=== PATIENT | female | born 1940 | race Caucasian/White ===

== ENCOUNTER → 2017-01-12 | Outpatient (CLI) | payer OTHER ==
[~2017-01-12] VITALS: Ht 167.6 cm; Wt 88.7 kg
[~2017-01-12] MED LIST: GLUCOPHAGE XR500 MG PO; HYDROCODONE-AP1 EAC6 PO; IRON325 PO; LISINOPRIL5 MG PO; PRILOSEC OTC20 MG PO; PROSCAR 5MG TABL5 MG PO; VITAMIN D35000 UNIT PO; ZOCOR20 MG PO
--- NOTE | ~2017-01-12 | HPC ---
[facility] [address] [place] [address] PAIN MANAGEMENT CONSULTATION Name: JARON PARK [id number] Admission: 01/12/17 Attend Phys: Jamal Cee DO Discharge: Date of : 41 Report #: [id number] THIS REPORT FOR: //name// CC: Jamal Lobo DATE OF SERVICE: 01/12/2017 DATE OF SERVICE: 01/12/2017 CHIEF COMPLAINT: Left neck pain, left upper extremity pain and paresthesias. HISTORY OF PRESENT ILLNESS: As you know, patient is a very pleasant 76-year-old female, who has been experiencing neck pain, left upper extremity pain that began 12/17/2016. The patient denies injury or trauma that may have led to symptoms. She discussed her care with Dr. Robbin Lobo, who was evaluating whether or not this was a neck issue or whether this was an issue of left shoulder symptomology. The patient ultimately was determined that may be experiencing cervical radiculopathy, given the findings of physical exam and the history she provided. She was subsequently referred to our clinic to discuss options for treatment for cervical radicular symptoms. She indicates pain today is constant, describes the pain as burning, shooting, sharp and stabbing, places current pain score 9/10, daily average at 7-9/10, worst the pain has been is 9/10. She states pain is exacerbated with lying down, improves with medications. She has been referred to our service for possible cervical radiculopathy. PAST MEDICAL HISTORY: 1. Hiatal hernia. 2. Hypertension. 3. Hypercholesterolemia. 4. GERD. 5. History of duodenal ulcers. 6. Hemorrhoids. 7. Degenerative joint disease. PAST SURGICAL HISTORY: Cholecystectomy, right hammertoe surgery x 2, blepharoplasties, total abdominal hysterectomy, bilateral salpingo-oophorectomy, multiple colonoscopies, hemorrhoidectomies. SOCIAL HISTORY: The patient denies tobacco, alcohol, IV or illicit drug use. She is retired. She is accompanied by her , is present in room today. IMAGING: No imaging available. [facility] [address] [place] [address] PAIN MANAGEMENT CONSULTATION Name: JARON PARK Room #: REG [facility]#: [id number] Admission: 01/12/17 Attend Phys: Jamal Cee DO Discharge: Date of : 41 Report #: [id number] REVIEW OF SYSTEMS: Positive for fatigue and weakness, wearing corrective eyewear, hearing loss with tinnitus, shortness of breath while lying flat, frequent urination, nocturia, incontinence and dribbling to urine, varicose veins, numbness and tingling sensations, neck pain, left shoulder pain, insomnia. All other review of systems negative per 12-point review of systems other than those listed in history of present illness. Pain impact score 44/70 indicating moderate to severe interference of daily activities secondary to pain. ALLERGIES: No known drug allergies. CURRENT MEDICATIONS: Lisinopril 5 mg once a day, simvastatin 10 mg once per day, metformin 500 mg twice a day, finasteride 5 mg 3 times a week, Prilosec 20 mg per day, vitamin D3 5000 units per day, iron supplementation 65 mg once a day. PHYSICAL EXAMINATION: VITAL SIGNS: Blood pressure 112/65, pulse 63, respiratory rate 20, unlabored. The patient is 100% on room air, height 5 feet 6 inches tall, weight 195.6 pounds, BMI calculated 31.6. GENERAL: Well developed, well nourished, well hydrated 76-year-old female appearing her stated age. She is placing current pain score at 9/10. HEENT: Normocephalic, atraumatic. Pupils equal, round, reactive to light. Extraocular muscles are intact. Sclerae nonicteric without injection. NEUROLOGIC: Cranial nerves 2-12 grossly intact. Speech is fluent. The patient deemed an excellent historian. LUNGS: Clear, no wheeze, rhonchi or rales. CARDIOVASCULAR: Regular. No appreciable gallop or rub. ABDOMEN: Soft, mildly obese, normoactive bowel sounds. EXTREMITIES: Show no clubbing, no cyanosis, no edema. MUSCULOSKELETAL: The patient does have palpatory tenderness over the paraspinal musculature cervical spine, no spinous process tenderness. Active and passive range of motion of left shoulder causes intensification of pain. There is noted positive Spurling's test left, negative right. Cervical provocation testing including extension, rotation, and lateral flexion to the left causes intensification of pain with radiation to the proximal humerus. Muscle bulk and tone equal and symmetrical in upper extremities. Intact to light touch from C5 through T1 dermatomes. ASSESSMENT: 1. Cervical radiculopathy. 2. Cervical spondylosis with radicular symptoms. 3. Left shoulder pain. PLAN: [facility] [address] [place] [address] PAIN MANAGEMENT CONSULTATION Name: JARON PARK Room #: REG [facility] Pam#: [id number] Admission: 01/12/17 Attend Phys: Jamal Cee DO Discharge: Date of : 41 Report #: [id number] 1. Based on today's physical exam, history the patient has provided, the description the patient uses in regards to pain as well as the exacerbating factors and alleviating factors, likely source of patient's pain is a cervical radiculopathy. She does have fairly significant shoulder pain, but it does not appear to be generated directly from the shoulder joint itself, though this is a strong possibility in a 76-year-old female that there is intrinsic shoulder pathology including osteoarthritic changes that may be contributing but the symptoms she is experiencing today appear to be related more to cervical radiculopathy given the positive Spurling's test. I believe cervical radicular symptoms are the major source of her symptoms. We discussed with the patient treatment options for cervical radicular symptoms today. These would include physical therapy, stretching exercises, core strengthening and traction techniques. We discussed medication management with addition of a neuropathic pain medication, low dose opioid for pain control and consistent nonsteroidal anti-inflammatory. We discussed cervical epidural injections under fluoroscopic guidance, spinal cord stimulator therapies and surgical options. After reviewing risks and benefits of all proposed treatment options, the patient chose cervical epidural injection under fluoroscopic guidance. The patient was advised risks and benefits of a cervical epidural injection. These risks include but are not necessarily limited to bleeding, bruising, infection, worsening pain, no relief of pain, also risk of temporary or permanent muscle weakness, temporary or permanent paralysis and . The patient states understood and wished to proceed. 2. The patient will be started on hydrocodone 5/325 one tab p.o. q. 6 hours p.r.n. for pain. I have given the patient #60, advised the patient to take the pain medication only when pain is intolerable, not to rely on the medication prophylactically. She is to watch for side effects such as somnolence, decrease in mental acuity, disorientation, confusion and constipation with the use of this therapy. If she has any side effects, discontinue immediately, call for further instructions. 3. There is a strong possibility the patient does have some arthritic changes in the left shoulder. We will further evaluate this if cervical treatments are not resolving the majority of her symptoms. I do feel that there are some arthritic changes in the shoulder, though she has no specific injury that would have led to acute onset of pain. This may be contributing to her symptoms. We will continue workup of the left shoulder if necessary depending on the efficacy of the injection for the cervical region. 4. We wish to thank Dr. Lobo for the referral of this patient to our clinic. We will keep you apprised of her response to treatment, as we address what appears to be cervical radicular symptoms. Again, we wish to thank you for the opportunity to participate in her care. PROCEDURE NOTE DESCRIPTION OF PROCEDURE: C7-T1 [place] [address] PAIN MANAGEMENT CONSULTATION Name: JARON PARK Room #: REG [facility]#: [id number] Admission: 01/12/17 Attend Phys: Jamal Cee DO Discharge: Date of : 41 Report #: [id number] fluoroscopic guidance. This is the first procedure of the first series that the patient is undergoing. After obtaining written consent, the patient was taken back to the fluoroscopy suite and placed in a prone position with separate pillows under chest and forehead to decrease cervical lordosis. The skin overlying the cervical area was prepped and draped in an aseptic fashion. The C7-T1 vertebral interspace was identified by AP fluoroscopy. The skin and subcutaneous tissue overlying the target site of injection was anesthetized using 3 mL of 1% lidocaine. A 20-gauge 3-1/2 inches Tuohy needle was advanced under fluoroscopic guidance toward the epidural space using a midline approach. The epidural space was identified using a loss of resistance to air technique. After negative aspiration for heme or cerebrospinal fluid, a total of 1 mL of Omnipaque was injected. A cervical epidurogram was confirmed using AP and oblique fluoroscopy. After negative aspiration for heme or cerebrospinal fluid, 5 mL of solution containing 2 mL 40 mg per mL, 80 mg total triamcinolone, 3 mL of lidocaine 1% was injected in increments. Contrast spread was noted from posterior epidural space. The needle was then retracted approximately half-way and the needle track was flushed with 1 mL of 1% lidocaine. There were no apparent new sensory deficits in the upper extremities present following the procedure. A sterile bandage was placed over the injection site. The heart rate, pulse oximetry and blood pressure were continuously monitored after the procedure. There were no apparent complications. The patient tolerated the procedure well and was carefully escorted in the recovery room in stable condition. After meeting discharge criteria, the patient was discharged home. By: [id number] Jamal Cee DO /nt
[2017-01-12 10:04] VITALS: BP 112/65
== END | disposition home or self-care (01) ==
LOC: PAIN 06:55
DX: M54.12 Radiculopathy, cervical region (principal); M47.812 Spondylosis without myelopathy or radiculopathy, cervical region; M25.512 Pain in left shoulder; M54.2 Cervicalgia; I10 Essential (primary) hypertension; E78.00 Pure hypercholesterolemia, unspecified; K21.9 Gastro-esophageal reflux disease without esophagitis; M19.90 Unspecified osteoarthritis, unspecified site; Z90.49 Acquired absence of other specified parts of digestive tract; Z90.710 Acquired absence of both cervix and uterus

== ENCOUNTER → 2017-01-26 | Outpatient (CLI) | payer OTHER ==
[~2017-01-26] VITALS: Ht 167.6 cm; Wt 89.7 kg
[~2017-01-26] MED LIST changes: +IBUPROFEN 200200 M1 PO
--- NOTE | ~2017-01-26 | HPC ---
[facility] [address] [place] [address] PAIN MANAGEMENT CONSULTATION Name: JARON PARK Room #: REG [facility].#: [id number] Admission: 01/26/17 Attend Phys: Jamal Cee DO Discharge: Date of : 41 Report #: [id number] THIS REPORT FOR: //name// CC: Jamal Lobo MD DATE OF SERVICE: 01/26/2017 REFERRING PHYSICIAN: Robbin Lobo MD CHIEF COMPLAINT: Neck pain, left upper extremity pain and paresthesias. HISTORY OF PRESENT ILLNESS: As you know, the patient is a very pleasant 76-year-old female who was referred to our clinic by her primary care physician, Dr. Robbin Lobo for evaluation of neck and left upper extremity pain. She was given the presumptive diagnosis of cervical radiculopathy along with left shoulder pain and underwent an epidural injection under fluoroscopic guidance to address cervical radicular symptoms. The patient came to us with no imaging studies, no x-rays, and no MRIs. She did undergo the procedure without complication and unfortunately, she only received transient improvement in symptoms. She returns today in followup visit to discuss further workup of her neck and left upper extremity symptoms. She places pain score today 8/10, states her pain is constant, burning, and shooting, exacerbated with lying down, improves with medications. She is accompanied by her today. She denies new injury, new trauma or any changes in medical history since our last visit. ALLERGIES: No known drug allergies. CURRENT MEDICATIONS: Ibuprofen, ferrous sulfate, omeprazole, finasteride, metformin, simvastatin, and lisinopril. SOCIAL HISTORY: The patient denies tobacco, alcohol, IV or illicit drug use. She is retired. She is accompanied by her . IMAGING: No new imaging available. PHYSICAL EXAMINATION: VITAL SIGNS: Blood pressure 118/52, pulse 50, respiratory rate 20 and unlabored, the patient is 100% on room air, height 5 feet 6 inches tall, weight 197.8 pounds, and BMI calculated 31.9. GENERAL: Well-developed, well-nourished, well-hydrated 76-year-old female, she appears her stated age, pain is rated around 8/10. HEENT: Normocephalic, atraumatic. Pupils are equal, round, and reactive to light. Extraocular muscles are intact. EXTREMITIES: Show no clubbing, no cyanosis, and no edema. [facility] [address] [place] [address] PAIN MANAGEMENT CONSULTATION Name: JARON PARK Room #: REG [facility]#: [id number] Admission: 01/26/17 Attend Phys: Jamal Cee DO Discharge: Date of : 41 Report #: [id number] MUSCULOSKELETAL: There is palpatory tenderness again noted over the paraspinal musculature of the cervical spine. Upper extremity strength appears equal and symmetrical. Active and passive range of motion of the left shoulder does intensify pain, though the pain does not appear to be related to just the shoulder itself. Spurling's test is positive left, negative right. Cervical provocation testing does cause increased pain with lateral flexion to the left and rotation to the left. ASSESSMENT: 1. Cervical radiculopathy. 2. Cervical spondylosis with radicular symptoms. 3. Left shoulder pain. 4. Chronic intractable pain. PLAN: 1. The patient returns today in followup visit having undergone the first in the series of cervical epidural injections, this did provide some analgesic benefit, but unfortunately was only short lived. She returns today in followup visit to discuss further evaluation. I agree with the patient at this time further imaging should be obtained before we move forward with any other treatment option. There is concern that the injection itself did not provide improvement and this may be due to more of a mechanical component to the patient's symptoms than inflammatory, as you are aware epidural injections are very effective at alleviating inflammatory processes, but provide little or no benefit from a mechanical standpoint. We will further evaluate the patient with MRI of cervical spine, we will set the patient up for this imaging study and have her return once we have completed this imaging to discuss the findings and the potential treatment options. The patient will undergo this MRI as quickly as possible. She was advised that authorization may be necessary before she could undergo this procedure. We will begin the authorization process immediately. 2. We have made no changes in the patient's medications at this time, she is to continue current medical therapy as previously prescribed. I did provide the patient with hydrocodone at last visit, she can continue this medication for pain control, she is receiving analgesic benefit with its use. 3. We will see the patient back in followup visit once she has completed her MRI, we will review the findings and discuss the options of treatment. By: [id number] Jamal Cee DO /nt
[2017-01-26 10:20] VITALS: BP 118/52
== END | disposition home or self-care (01) ==
LOC: PAIN 07:41
DX: M54.12 Radiculopathy, cervical region (principal); M47.22 Other spondylosis with radiculopathy, cervical region; M25.512 Pain in left shoulder

== ENCOUNTER → 2017-03-10 | Outpatient (CLI) | payer OTHER | LOC: MRI 07:20 | DX: M47.892 Other spondylosis, cervical region (principal); M54.12 Radiculopathy, cervical region; M25.512 Pain in left shoulder ==

== ENCOUNTER → 2017-03-16 | Outpatient (CLI) | payer OTHER ==
[~2017-03-16] VITALS: Ht 167.6 cm; Wt 134.3 kg
[~2017-03-16] MED LIST changes: +NORCO 5-325 TA1 EACH PO
--- NOTE | ~2017-03-16 | HPC ---
[facility] [address] [address] PAIN MANAGEMENT CONSULTATION Name: JARON PARK Room #: REG [facility]#: [id number] Admission: 03/16/17 Attend Phys: Jamal Cee DO Discharge: Date of : 41 Report #: [id number] THIS REPORT FOR: //name// CC: Jamal Lobo MD DATE OF SERVICE: 03/16/2017 REFERRING PHYSICIAN: Robbin Lobo MD CHIEF COMPLAINT: Neck pain, left upper extremity pain and paresthesias. HISTORY OF PRESENT ILLNESS: As you know, the patient is a very pleasant 76-year-old female who returns today in followup visit with ongoing neck pain, left upper extremity pain with paresthesias. The patient is placing pain score around 8/10, states pain is burning, , stabbing, tingling, numbness, spasming, improvement in symptoms with medications, heat and cold compresses, lying down and any activity with the left upper extremity exacerbate symptoms. She has returned today in followup visit to review the recent MRI that was obtained on 03/10/2017 and discuss options for treatment. She denies new injury new trauma that may have led to continuation of symptoms. ALLERGIES: No known drug allergies. CURRENT MEDICATIONS: Ibuprofen, ferrous sulfate, omeprazole, finasteride, metformin, simvastatin, and lisinopril. SOCIAL HISTORY: The patient denies tobacco, alcohol, IV or illicit drug use. She is retired. She is accompanied by her who is also retired. IMAGING: MRI of cervical spine obtained on 03/10/2017 shows moderate cervical spondylosis, posterior ridging and spurring most severe at the C4-C5 level and C6-C7 level, mild central canal stenosis, C4-C5, C5-C6, C6-C7 with small right paramedian disk osteophyte complex seen at C6-C7 with mild cord contact. PHYSICAL EXAMINATION: VITAL SIGNS: Blood pressure 136/91, pulse 65, respiratory rate 20, unlabored. The patient is 97% on room air, height 5 feet 6 inches tall, weight 197 pounds, BMI calculated at 31.9. GENERAL: Well-developed, well-nourished, well-hydrated 76-year-old female appearing stated age, placing current pain score at 8/10. HEENT: Normocephalic, atraumatic. Pupils equal, round, reactive to light. Extraocular muscles are intact. Sclerae nonicteric without injection. NEUROLOGIC: Cranial nerves 2-12 grossly intact. LUNGS: Clear. [address] [address] PAIN MANAGEMENT CONSULTATION Name: JARON PARK Room #: [facility]#: [id number] Admission: 03/16/17 Attend Phys: Jamal Cee DO Discharge: Date of : 41 Report #: [id number] EXTREMITIES: Show no clubbing, no cyanosis, no edema. MUSCULOSKELETAL: Upper extremity strength appears equal and symmetrical 5/5. Slight giveaway strength noted with biceps flexion on the left when compared to the right. Spurling's test positive left, negative right. Muscle bulk and tone equal and symmetrical in upper extremities. ASSESSMENT: 1. Cervical radiculopathy. 2. Cervical spinal stenosis. 3. Displacement of cervical intervertebral disk. 4. Cervical spondylosis with radiculopathy. 5. Chronic intractable pain. PLAN: 1. The patient returns today in followup visit where we aware have been reviewed in its entirety. The findings of the MRI obtained on 03/10/2017. I am pleased to indicate to the patient today that there are no major pathology that would require surgical options. The majority of the findings are age-related with facet arthropathy noted as the major changes noted within the cervical region. We discussed with the patient that options for treatment remain similar to her previous evaluation. The following was discussed. The patient and I discussed physical therapy, stretching exercises, core strengthening for which the patient is continuing to participate that would need to be some adjustments in their physical therapy to adjust for ongoing left upper extremity pain, but she could continue this process. We discussed medication management with neuropathic pain medication, low dose opioid for pain control. We discussed cervical epidural injections under fluoroscopic guidance, spinal cord stimulator therapy is an option and surgical options were discussed, but they are not necessary in this patient's case. After reviewing risks and benefits of all proposed treatment options, the patient requested to trial once again an epidural injection. 2. The patient was advised risks and benefits of a cervical epidural injection. These risks include but are not necessarily limited to bleeding, bruising, infection, worsening pain, no relief of pain, also risk of temporary or permanent muscle weakness, temporary or permanent nerve damage, possible paralysis and . The patient states understood and wished to proceed. 3. No medication changes were made at today's visit, the patient to continue current medical therapy as previously prescribed. 4. The patient to return to our clinic on an as needed basis for next in the series of epidural injections and discuss other treatment options. PROCEDURE NOTE DESCRIPTION OF PROCEDURE: C7-T1 cervical epidural steroid injection under fluoroscopic guidance. [address] [address] PAIN MANAGEMENT CONSULTATION Name: JARON PARK Room #: REG [facility]#: [id number] Admission: 03/16/17 Attend Phys: Jamal Cee DO Discharge: Date of : 41 Report #: [id number] This is the second procedure of the first series that the patient is undergoing. After obtaining written consent, the patient was taken back to the fluoroscopy suite and placed in a prone position with separate pillows under chest and forehead to decrease cervical lordosis. The skin overlying the cervical area was prepped and draped in an aseptic fashion. The C7-T1 vertebral interspace was identified by AP fluoroscopy. The skin and subcutaneous tissue overlying the target site of injection was anesthetized using 3 mL of 1% lidocaine. A 20-gauge 3-1/2 inch Tuohy needle was advanced under fluoroscopic guidance toward the epidural space using a midline approach. The epidural space was identified using a loss of resistance to air technique. After negative aspiration for heme or cerebrospinal fluid, a total of 1 mL of Omnipaque was injected. A cervical epidurogram was confirmed using AP and oblique fluoroscopy. After negative aspiration for heme or cerebrospinal fluid, 5 mL of solution containing 2 mL 40 mg per mL, 80 mg total triamcinolone, 3 mL of lidocaine 1% was injected in increments. Contrast spread was noted from posterior epidural space. The needle was then retracted approximately prison and the needle track was flushed with 1 mL of 1% lidocaine. There were no apparent new sensory deficits in the upper extremities present following the procedure. A sterile bandage was placed over the injection site. The heart rate, pulse oximetry and blood pressure were continuously monitored after the procedure. There were no apparent complications. The patient tolerated the procedure well and was carefully escorted in the recovery room in stable condition. After meeting discharge criteria, the patient was discharged home. By: [id number] Jamal Cee DO /nt
[2017-03-16 14:11] VITALS: BP 136/91
== END | disposition home or self-care (01) ==
LOC: PAIN 02-02 06:46
DX: M50.320 Other cervical disc degeneration, mid-cervical region, unspecified level (principal); M48.02 Spinal stenosis, cervical region; M47.22 Other spondylosis with radiculopathy, cervical region; G89.29 Other chronic pain; Z79.899 Other long term (current) drug therapy

== ENCOUNTER → 2017-04-06 | Outpatient (CLI) | payer OTHER ==
[~2017-04-06] VITALS: Ht 167.6 cm; Wt 88.0 kg
[~2017-04-06] MED LIST changes: +DICLOFENAC SOD50 M1 PO
[2017-04-06 11:01] VITALS: BP 126/77
== END | disposition home or self-care (01) ==
LOC: PAIN 07:19
DX: M48.02 Spinal stenosis, cervical region (principal); M50.30 Other cervical disc degeneration, unspecified cervical region; M47.27 Other spondylosis with radiculopathy, lumbosacral region; M25.512 Pain in left shoulder; G89.29 Other chronic pain; Z98.890 Other specified postprocedural states

== ENCOUNTER → 2017-06-08 | Outpatient (CLI) | payer OTHER ==
[~2017-06-08] VITALS: Ht 167.6 cm; Wt 87.5 kg
[~2017-06-08] MED LIST changes: +AMLODIPINE BESYL5 M1 PO; +LISINOPRIL20 MG PO; -LISINOPRIL5 MG PO
--- NOTE | ~2017-06-08 | HPC ---
[facility] [address] [place] [address] PAIN MANAGEMENT CONSULTATION Name: JARON PARK Room #: REG [facility]#: [id number] Admission: 06/08/17 Attend Phys: Jamal Cee DO Discharge: Date of : 41 Report #: [id number] THIS REPORT FOR: //name// CC: Jamal Lobo MD DATE OF SERVICE: 06/08/2017 REFERRING PHYSICIAN: Robbin Lobo MD CHIEF COMPLAINT: Left shoulder pain. HISTORY OF PRESENT ILLNESS: As you know, the patient is a very pleasant 76-year-old female who has been followed by [facility] for cervical radicular symptoms involving right-sided neck pain and shoulder pain. She is now experiencing increasing left shoulder pain for which she has been referred back to our clinic to trial an intraarticular shoulder injection. The patient indicates pain level of 8/10, states pain is burning, sharp and constant, pain is exacerbated with moving and using her arm, improves with medications, heat and cold compresses. She has been referred back to our clinic to trial an intraarticular shoulder injection on the left side to address possible left shoulder arthritis. ALLERGIES: No reported drug allergies. CURRENT MEDICATIONS: Amlodipine, diclofenac, ferrous sulfate, cholecalciferol, omeprazole, finasteride, metformin, simvastatin, and lisinopril. SOCIAL HISTORY: The patient denies tobacco, alcohol, IV or illicit drug use. She is retired. She is accompanied by her present in room today. IMAGING: No new imaging available. PHYSICAL EXAMINATION: VITAL SIGNS: Blood pressure 150/74, pulse 67, respiratory rate 14 and unlabored, the patient is 97% on room air, height 5 feet 6 inches tall, weight 193 pounds, and BMI calculated 31.2. GENERAL: Well-developed, well-nourished, well-hydrated 76-year-old female, she appears stated age, placing current pain score 8/10. HEENT: Normocephalic, atraumatic. Pupils are equal, round, and reactive to light. Extraocular muscles are intact. Sclerae nonicteric without injection. EXTREMITIES: Show no clubbing, no cyanosis, and no edema. MUSCULOSKELETAL: The patient does have some palpatory tenderness over the posterior and anterior portion of the left shoulder. Active and passive range of motion is met with some increasing pain. Apprehension test is negative. [address] [address] PAIN MANAGEMENT CONSULTATION Name: JARON PARK Lisa Room #: REG [facility]#: [id number] Admission: 06/08/17 Attend Phys: Jamal Cee DO Discharge: Date of : 41 Report #: [id number] Cervical provocation testing including extension, rotation, and lateral flexion all intensify axial back pain with radiation to the upper back from the cervical region. Spurling's test is positive. ASSESSMENT: 1. Left shoulder pain. 2. Chronic cervical radiculopathy. 3. 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 4. Cervical spondylosis with radiculopathy. 5. Chronic intractable pain. PLAN: 1. The patient has returned today in followup visit per the request of her primary care physician to address left shoulder pain. The patient was advised by her primary care physician the likely source of the patient's left shoulder pain is the actual shoulder itself. I am unable to elicit much in the way of crepitus with movement of the left shoulder, but there is pain with movement in particular. There is a possibility the patient has suffered a labral injury to the shoulder joint itself. I do not perceive much in the way of significant arthritic changes in the joint itself. I have discussed this with the patient today. The patient states that she wishes to undergo a left intraarticular shoulder injection to address the left shoulder pain she has been experiencing. This was requested by her primary care physician. The patient was advised the risks and benefits of a left intraarticular shoulder injection. These risks include, but are not necessarily limited to bleeding, bruising, infection, worsening of pain, no relief of pain, also risk of temporary or permanent muscle weakness, temporary paralysis, joint destruction and . The patient states understood and wished to proceed. 2. No medication changes were made at today's visit. The patient will continue current medical therapy as previously prescribed. 3. We will see the patient back in followup visit on an as needed basis for possible discussion of other treatment options PROCEDURE NOTE DESCRIPTION OF PROCEDURE: Left intraarticular shoulder injection under fluoroscopic guidance. After obtaining written consent, the patient was taken back to the fluoroscopy suite, placed in a supine position. The image intensifier was then placed over the left shoulder and imaging was obtained. The area was then prepped and draped in aseptic fashion and a sterile marker was placed over the joint to panfilo an injection site. A 27-gauge 1-1/4 inch needle was then used to anesthetize skin and subcutaneous tissue with 3 mL of 1% lidocaine. [address] [address] PAIN MANAGEMENT CONSULTATION Name: JARON PARK Room #: REG [facility]#: [id number] Admission: 06/08/17 Attend Phys: Jamal Cee DO Discharge: Date of : 41 Report #: [id number] A 25-gauge 2-inch needle was advanced under fluoroscopic guidance into the left shoulder under direct fluoroscopic visualization. We entered into the left shoulder without complication. Needle was advanced to the proximal head of the humerus, once reaching osseous structure, the needle was retracted 1 mm and aspiration noted negative for heme. After negative aspiration for heme, 0.4 mL of Omnipaque was injected demonstrating an excellent left shoulder arthrogram. After negative aspiration for heme, 3 mL of a solution containing 1 mL 40 mg per mL, 40 mg total triamcinolone and 2 mL bupivacaine 0.5% was injected slowly. Needle retracted custodial, needle tract flushed 3 mL 1% lidocaine. Needle then removed. Sterile bandage placed over injection site. No new motor deficits present in the upper extremity following the procedure. The patient tolerated the procedure well, carefully escorted to recovery room in stable condition. No apparent complications. After meeting discharge criteria, the patient discharged home. By: [id number] Jamal Cee DO /nt
[2017-06-08 11:20] VITALS: BP 150/74
== END | disposition home or self-care (01) ==
LOC: PAIN 07:17
DX: M25.512 Pain in left shoulder (principal); M50.10 Cervical disc disorder with radiculopathy, unspecified cervical region; M47.22 Other spondylosis with radiculopathy, cervical region; G89.29 Other chronic pain

== ENCOUNTER → 2017-12-23 | Outpatient (CLI) | payer OTHER | LOC: RAD 14:52 | DX: R07.9 Chest pain, unspecified (principal); R05 Cough ==

== ENCOUNTER → 2018-07-05 | Outpatient (CLI) | payer OTHER ==
[~2018-07-05] VITALS: Ht 167.6 cm; Wt 88.0 kg
--- NOTE | ~2018-07-05 | HPC ---
[facility] [address] [place] [address] PAIN MANAGEMENT CONSULTATION Name: JARON PARK Room #: REG [facility]#: [id number] Admission: 07/05/18 Attend Phys: Jamal Cee DO Discharge: Date of : 41 Report #: [id number] THIS REPORT FOR: //name// CC: Jamal Lobo DATE OF SERVICE: 07/05/2018 CHIEF COMPLAINT: Left shoulder pain. HISTORY OF PRESENT ILLNESS: As you know, the patient is a very pleasant 77-year-old female, who returns today in followup visit reporting continued left shoulder pain for which she gives a pain number of 3/10. She states pain is aching in sensation, burning at times, exacerbated with movement, improves with medications, cold compresses and physical therapy. The patient sought evaluation through Orthopedic Surgery who advised the patient to trial conservative medications and physical therapy. The patient has started physical therapy and is noticing the combination of diclofenac 50 mg dose twice a day along with the physical therapy has provided good and prolonged benefit. The patient has been able to return to all activities of daily living without significant pain interference. She returns today requesting refill on her diclofenac and to discuss her concerns about the medication. She is denying any dyspepsia, worsening of blood pressure, lower extremity edema with the use of the therapy. ALLERGIES: No known drug allergies. CURRENT MEDICATIONS: Amlodipine, diclofenac, ferrous sulfate, cholecalciferol, omeprazole, finasteride, metformin, simvastatin and lisinopril. SOCIAL HISTORY: The patient denies tobacco, alcohol, IV or illicit drug use. She is retired, retired years ago. She is present with her in room today. IMAGING: No new imaging available. PQRS: The patient has known osteoarthritis of the bilateral shoulders, left greater than right. She has cervical facet arthropathy, lumbar facet arthropathy and bilateral hip osteoarthritis, no rheumatoid arthritis. She is not a fall risk, has not had a fall in last 3 months. She is placing pain score 3/10. She is not on blood thinners, but is treated for hypertension. She is not on opioid. She has a low opioid addiction potential. Functional assessment pain impact tool reports 23/70, mild to moderate. PHYSICAL EXAMINATION: [address] [address] PAIN MANAGEMENT CONSULTATION Name: JARON PARK Room #: [facility]#: [id number] Admission: 07/05/18 Attend Phys: Jamal Cee DO Discharge: Date of : 41 Report #: [id number] VITAL SIGNS: Blood pressure 135/67, pulse 78, respiratory rate 16 and unlabored. The patient is 95% on room air. Height 5 feet 6 inches tall, weight 194 pounds, BMI calculated at 31.3. GENERAL: Well-developed, well-nourished, well-hydrated exogenously obese 77-year-old female appearing stated age, placing current pain score 3/10. HEENT: Normocephalic, atraumatic. Pupils equal, round, reactive to light. Extraocular muscles are intact. Speech is fluent. The patient is an excellent historian. EXTREMITIES: Show no clubbing, no cyanosis, no edema. MUSCULOSKELETAL: Active and passive range of motion of the left shoulder causes intensification of pain. There is mild noted crepitus with movement. There is palpatory tenderness over the anterior and posterior portion of the shoulder today. Apprehension test negative. ASSESSMENT: 1. Left shoulder pain. 2. Left rotator cuff injury. 3. Osteoarthritis of the left shoulder. 4. 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 5. Chronic intractable pain. PLAN: 1. The patient has returned today in followup visit indicating the combination of physical therapy along with diclofenac 50 mg twice a day is working beneficially for pain control. The patient and I had a long discussion today about the use of nonsteroidal anti-inflammatories. We discussed the risks of that medication including dyspepsia, worsening of blood pressure, lower extremity edema, and potential toxicity to kidneys and cardiovascular risk. After reviewing all the risks of the medication, the patient chose to continue the therapy. I would recommend that the patient follow up with her PCP in the next couple of weeks as she already has planned for lab to be drawn. We will review BUN and creatinine levels at that time. If it does not appear to be elevated, I would continue the diclofenac as she is seeing good benefit and little or no side effects. 2. The patient was provided prescription of diclofenac 50 mg dose 1 tab p.o. t.i.d., I have given the patient #90 and multiple refills. The patient can continue on this medication as directed, either taking 3 times a day when her pain is intense, twice a day if her pain has improved significantly and if able to drop to 1 tablet a day for maintenance. She was given the prescriptions today. 3. Recommend the patient follow up with her PCP in regards to further evaluation for concomitant illness. She appears to be doing well from her left shoulder standpoint, the combination of physical therapy and medications have been working beneficially. We will be more than willing to see the patient back in followup visit if an intra-articular shoulder injection might be necessary. At this point, we do not feel it is needed. We will see the patient back in [address] [place] [address] PAIN MANAGEMENT CONSULTATION Name: JARON PARK Room #: REG [facility]#: [id number] Admission: 07/05/18 Attend Phys: Jamal Cee DO Discharge: Date of : 41 Report #: [id number] followup visit on an as needed basis for possible intra-articular shoulder injection. Otherwise, we will see her back for medication management when necessary. <ELECTRONICALLY SIGNED> By: Jamal Cee DO 07/06/18 [id number] Jamal Cee DO /nt
[2018-07-05 13:50] VITALS: BP 135/67
[2018-07-05 14:11] VITALS: BP 135/67
== END ==
LOC: PAIN 06:57
DX: S46.812A Strain of other muscles, fascia and tendons at shoulder and upper arm level, left arm, initial encounter (principal); M25.512 Pain in left shoulder; G89.4 Chronic pain syndrome; M19.012 Primary osteoarthritis, left shoulder; X58.XXXA Exposure to other specified factors, initial encounter; Y93.89 Activity, other specified; Y92.89 Other specified places as the place of occurrence of the external cause; Y99.8 Other external cause status; Z79.899 Other long term (current) drug therapy

== ENCOUNTER → 2019-01-17 | Outpatient (CLI) | payer OTHER ==
[~2019-01-17] VITALS: Ht 167.6 cm; Wt 87.0 kg
[~2019-01-17] MED LIST changes: +TYLENOL325 M1 PO
[2019-01-17 13:40] VITALS: BP 134/64
--- NOTE | 2019-01-17 13:51 | NUR ---
Pain Clinic Assessment: 1. History of Osteoarthritis: NO History of Rheumatoid Arthritis: NO 2. Height: 5 ft. 6 in. 167.6 cm. Weight: 191.8 lb. oz. 87.000 kg. Patient's BMI: 31.0 3. Vital Signs: BP: 134/64 Pulse: 56 Resp: 16 Temp: 02 Sat: 98 ECG Mon: 4. Pain Intensity: 9 5. Fall Risk: Dizziness: N Needs help standing or walking: N Fallen in the last 3 months: N Fall risk comments: 6. Patient on Blood Thinner: None 7. History of Hypertension: Y 8. Opioid Therapy greater than 6 weeks: N Opiate Contract Signed: 9. Risk Assessment Tool Provided: LOW RISK 0/3 10. Functional Assessment Tool: 11. Recreational Drug Use: Never Drug Type: Tobacco Use: Never Smoker Tobacco Type: Amount or Packs/day: How Many Years: Alcohol Use: No Frequency: Quant:
--- NOTE | 2019-01-25 12:39 | HPC ---
[facility] [address] [place] [address] PAIN MANAGEMENT CONSULTATION Name: JARON PARK Room #: REG [facility]#: [id number] Admission: 01/17/19 ������������������ Attend Phys: Jamal Cee DO Discharge: ������������������ Date of : 41 Report #: [id number] THIS REPORT FOR: //name// CC: Jamal Lobo MD DATE OF SERVICE: 01/17/2019 CHIEF COMPLAINT: Low back pain, right lower extremity pain with paresthesias. HISTORY OF PRESENT ILLNESS: As you know, the patient is a very pleasant 78-year-old female who has been followed by [facility] for chronic neck pain and left shoulder pain. She returns today per the request of Dr. Lobo for evaluation for low back pain, right lower extremity pain with radiation into the foot. She states her pain today is radiating, burning, numbness, tingling, constant in sensation, also perceived weakness. She is placing pain score today 9/10, walking or any activity exacerbates symptoms, cold compresses, heat, rest tends to improve pain slightly. She sought evaluation through Dr. Lobo who referred her back to our clinic to trial lumbar epidural injection to address suspected lumbar radiculopathy. The patient denies specific injury or trauma that may have led to symptom recurrence. ALLERGIES: No known drug allergies. CURRENT MEDICATIONS: Amlodipine, diclofenac, ferrous sulfate, cholecalciferol, omeprazole, finasteride, metformin, simvastatin and lisinopril. SOCIAL HISTORY: The patient denies tobacco, alcohol, IV or illicit drug use. She is . She is accompanied by her present in room today. IMAGING: There is no imaging available. PHYSICAL EXAMINATION: VITAL SIGNS: Blood pressure 134/64, pulse 56, respiratory rate 16 and unlabored. The patient is 98% on room air. Height 5 feet 6 inches tall, weight 191.8 pounds, BMI calculated 31.0. GENERAL: Well-developed, well-nourished, well-hydrated 78-year-old female appearing stated age, placing current pain score at 9/10. HEENT: Normocephalic, atraumatic. Pupils equal, round, reactive to light. Extraocular muscles are intact. Sclerae nonicteric without injection. NEUROLOGIC: Cranial nerves 2-12 grossly intact. Speech fluent. EXTREMITIES: Show no clubbing, no cyanosis, and no edema. MUSCULOSKELETAL: Lower extremity strength appears symmetrical 5/5, intact to light touch from L1 through S2 dermatomes. Seated straight leg raising negative. Supine straight leg raising positive on the right at about [address] [address] PAIN MANAGEMENT CONSULTATION Name: VIVIANJARON Lisa Room #: REG [facility].#: [id number] Admission: 01/17/19 ������������������ Attend Phys: Jamal Cee DO Discharge: ������������������ Date of : 41 Report #: [id number] degrees. Anastasiia's test is mildly positive. Ankle clonus negative. Babinski is negative. Gait mildly antalgic favoring right lower extremity over left. ASSESSMENT: 1. Symptomatic lumbar radiculopathy. 2. Lumbosacral spondylosis with radiculopathy. 3. Degeneration of lumbar spine. PLAN: 1. Based on today's physical exam and the history the patient provides, the distribution of symptoms, the patient is experiencing and the intensity of symptoms and descriptors she uses the likely source of the patient's pain is a lumbar radiculopathy. The patient does have known cervical radicular symptoms, so it is not unusual that the patient might show with lumbar radicular symptoms without inciting injury or trauma. We do not have imaging available to determine the extent of pathology in the lumbar region, but given the distribution of symptoms, it appears that she is having symptoms radiating from the L4-L5 level. We discussed with the patient treatment options for lumbar radicular symptoms today, the following was discussed. 2. We discussed physical therapy, stretching exercise, core strengthening. We discussed medication management with neuropathic pain medications and a consistent nonsteroidal anti-inflammatory. We discussed lumbar epidural injection under fluoroscopic guidance, spinal cord stimulator therapy and surgical options. After reviewing the risks and benefits of all proposed treatment options, the patient chose to move forward with a lumbar epidural injection under fluoroscopic guidance. 3. The patient's third libertarian payer did require authorization before she could undergo this epidural injection. We took the liberty of contacting the patient's insurer today and was able to gain a same day authorization. Authorization information was placed on our chart. She is prepared to undergo the procedure today. 4. We advised the patient of the risks and benefits of a lumbar epidural injection. These risks include but are not necessarily limited to bleeding, bruising, infection, worsening pain, no relief of pain, also risk of temporary or permanent muscle weakness, temporary or permanent nerve damage, possible paralysis, post-dural puncture headache and . The patient states understood and wished to proceed. 5. No medication changes made at today's visit. The patient will continue current medical therapy as previously prescribed. 6. We will see the patient back in followup visit on an as needed basis for possible next in the series of lumbar epidural injections. DESCRIPTION OF PROCEDURE: L5-S1 right paramedian epidural steroid injection under fluoroscopic guidance. After obtaining written consent, the patient was taken back to fluoroscopy [facility] [address] [place] [address] PAIN MANAGEMENT CONSULTATION Name: JARON PARK Room #: REG [facility]#: [id number] Admission: 01/17/19 ������������������ Attend Phys: Jamal Cee DO Discharge: ������������������ Date of : 41 Report #: [id number] suite, placed in prone position with pillow under abdomen to decrease lumbar lordosis. Skin overlying lumbosacral area prepped and draped in aseptic fashion. The lumbar intervertebral spaces were identified by AP fluoroscopy. Skin and subcutaneous tissue overlying target site of injection anesthetized with 3 mL of 1% lidocaine. A 20-gauge 3-1/2 inch Tuohy needle advanced under fluoroscopic guidance towards the epidural space using right paramedian approach. Epidural space identified using loss of resistance to air technique. After negative aspiration for heme or cerebrospinal fluid, 1 mL of Omnipaque injected. Lumbar epidurogram confirmed using both AP and lateral fluoroscopy. After negative aspiration for heme or cerebrospinal fluid, 5 mL of a solution containing 2 mL 40 mg per mL, 80 mg total triamcinolone and 3 mL lidocaine 1% injected slowly. Needle retracted approximately half way, flushed with 1 mL of 1% lidocaine and then removed. Sterile bandage placed over injection site. No new motor deficits present in the lower extremity following procedure. The patient tolerated procedure well, carefully escorted to the recovery room in stable condition. No apparent complication. After meeting discharge criteria, the patient discharged home. ��������������������������������������������� <ELECTRONICALLY SIGNED> ���������������������������������������� By: Jamal Cee DO ��������������������������������������������� 01/25/19 1239 [id number] Jamal Cee DO /nt
== END | disposition home or self-care (01) ==
LOC: PAIN 07:08
DX: M51.16 Intervertebral disc disorders with radiculopathy, lumbar region (principal); M47.27 Other spondylosis with radiculopathy, lumbosacral region; G89.29 Other chronic pain; Z79.899 Other long term (current) drug therapy; Z98.890 Other specified postprocedural states